=== PATIENT | female | born 1980 | race Caucasian/White ===

== ENCOUNTER 2017-05-11 17:32 | Inpatient (IN) | payer MEDICAID ==
--- NOTE | 2017-05-11 18:49 | C.PDOC ---
History Of Present Illness 36 y/o female, with history of HTN, Type 2 Diabetes, alcoholism, and seizures presents to the ER for detox from ETOH. Patient reports that she uses methadone but she has not been able to receive it at a methadone clinic. Therefore, she is getting methadone in the streets. Patient initial stated she is 6 months with no pre-edu care, now also states that she had a miscarriage about 3 months ago. Patient denies having any headache, fever, chills, nausea, vomiting, and diarrhea. Time Seen by Provider: 05/11/17 17:48 Chief Complaint (Nursing): Substance Abuse History Per: Patient History/Exam Limitations: no limitations Onset/Duration Of Symptoms: Hrs Current Symptoms Are (Timing): Still Present Past Medical History Reviewed: Historical Data, Nursing Documentation, Vital Signs Vital Signs: Last Vital Signs Temp 98.8 F 05/11/17 17:50 Pulse 90 05/11/17 17:50 Resp 16 05/11/17 17:50 BP 128/82 05/11/17 17:50 Pulse Ox 95 05/11/17 18:57 - Medical History PMH: Asthma, HTN, Seizures (EPILEPSY) Surgical History: Appendectomy, Cholecystectomy Family History: States: No Known Family Hx - Social History Hx Alcohol Use: Yes Hx Substance Use: No - Immunization History Hx Tetanus Toxoid Vaccination: No Hx Influenza Vaccination: No Hx Pneumococcal Vaccination: No Review Of Systems Except As Marked, All Systems Reviewed And Found Negative. Constitutional: Negative for: Fever, Chills Gastrointestinal: Negative for: Nausea, Vomiting, Diarrhea Neurological: Negative for: Headache Physical Exam - Physical Exam Appears: No Acute Distress, Other (very thin) Skin: Normal Color, Warm Head: Atraumatic, Normacephalic Eye(s): bilateral: Normal Inspection, PERRL Nose: Normal Oral Mucosa: Moist Neck: Supple Chest: Symmetrical Gastrointestinal/Abdominal: Normal Exam, Soft, Distention, Hernia (right inguinal hernia) Extremity: Normal ROM Neurological/Psych: Oriented x3, Normal Speech, Normal Cognition, Normal Motor, Normal Sensation ED Course And Treatment O2 Sat by Pulse Oximetry: 95 (RA) Pulse Ox Interpretation: Normal Medical Decision Making Medical Decision Making: Impression: Detox from ETOH Abuse Plan: --Labs --Urinalysis -- ABD & Pelv. CT W/PO Contrast Disposition Counseled Patient/Family Regarding: Studies Performed, Diagnosis - Disposition Disposition: HOSPITALIZED Disposition Time: 19:01 Condition: STABLE Forms: [facility] (Slovenian) - Clinical Impression Clinical Impression: Alcohol abuse - Scribe Statement The provider has reviewed the documentation as recorded by the Loveibe Mlies Ward Provider Attestation: All medical record entries made by the Loveibe were at my direction and personally dictated by me. I have reviewed the chart and agree that the record accurately reflects my personal performance of the history, physical exam, medical decision making, and the department course for this patient. I have also personally directed, reviewed, and agree with the discharge instructions and disposition. Physician Patient Turnover Patient Signed Over To: Ronan Schaeffer Handoff Comments: patient pending med clearance for detox and abdominal CT for distention/hernia. Decision To Admit - . Patient Diagnosis: Alcohol abuse
[2017-05-11 19:12] LABS: HCG,QUALITATIVE URINE NEGATIVE (NEGATIVE)
[2017-05-11 19:25] LABS: BENZODIAZEPINES, UR NEGATIVE (NEGATIVE); OPIATES, UR NEGATIVE (NEGATIVE); PHENCYCLIDINE, UR NEGATIVE (NEGATIVE)
[2017-05-11 19:29] LABS: EOS # 0.2 K/uL (0.0-0.7); LYMPH # 1.2 K/uL (1.0-4.3); MONO # 0.4 K/uL (0.0-0.8); WHITE BLOOD COUNT 5.9 K/uL (4.8-10.8)
[2017-05-11 19:30] LABS: SQUAMOUS EPITHIAL 5 /hpf (0-5); URINE BACTERIA RARE (<OCC); URINE BILIRUBIN NEGATIVE (NEGATIVE); URINE BLOOD NEGATIVE (NEGATIVE); URINE CLARITY Clear (Clear); URINE COLOR Straw (YELLOW); URINE GLUCOSE (UA) NORMAL (Normal); URINE LEUKOCYTE ESTERASE 2+ Leu/uL (Negative); URINE NITRATE NEGATIVE (NEGATIVE); URINE PROTEIN NEGATIVE (NEGATIVE); URINE UROBILINOGEN NORMAL mg/dL (0.2-1.0)
[2017-05-11 19:36] LABS: BASO % 0.7 % (0.0-2.0); EOS % 2.7 % (0.0-4.0); LYMPH % 20.7 % (20.0-40.0); MEAN CORPUSCULAR HGB CONC 34.3 g/dL (33.0-37.0); MEAN PLATELET VOLUME 8.7 fL (7.2-11.7); MONO % 7.6 % (0.0-10.0); NEUT % 68.3 % (50.0-75.0); RBC 3.82 Mil/uL (3.80-5.20); RED CELL DISTRIBUTION WIDTH 14.1 % (11.5-14.5)
[2017-05-11 19:41] LABS: ALBUMIN 2.9 g/dL (3.5-5.0); ALT/SGPT 41 U/L (9-52); AST/SGOT 123 U/L (14-36); BLOOD UREA NITROGEN 3 mg/dL (7-17); CALCIUM 7.2 mg/dl (8.6-10.4); GFR AFRICAN-AMERICAN > 60; GFR NON-AFRICAN AMERICAN > 60
[2017-05-11 19:43] LABS: ALB/GLOB RATIO 0.7 (1.0-2.1)
[2017-05-11 19:43] LABS: BARBITURATES, UR NEGATIVE (NEGATIVE)
[2017-05-11] MEDS ORDERED: Iohexol 240 (50 ml) ONE (20:05)
--- NOTE | 2017-05-11 20:38 | US ---
EXAM: US Pelvis Complete, Transabdominal US Pelvis, Transvaginal CLINICAL HISTORY: 36 years old, female; Condition or disease; Other: 6 months no care , for detox; Additional info: 6 months , no care, for detox TECHNIQUE: Real-time transabdominal and transvaginal pelvic ultrasound (complete) with image documentation. Transvaginal imaging was used for better evaluation of the endometrium and adnexa. COMPARISON: No relevant prior studies available. FINDINGS: Uterus/cervix: Transabdominally the uterus measures 8.5 x 3.9 x 4.5 cm. The endometrial stripe measures 5 mm. Ovaries: The ovaries are not seen as separate structures. Free fluid: Small to moderate amount of pelvic ascites is noted. Bladder: Unremarkable as visualized. Wall is normal thickness for degree of distention. IMPRESSION: 1. There is no intrauterine . In the clinical setting of a positive beta hCG and an empty uterus, the differential diagnostic considerations include, ectopic , recent or normal early intrauterine . Serial beta hCG is recommended. 2. The ovaries are not seen as separate structures.. EXAM: US Pelvis Complete, Transabdominal US Pelvis, Transvaginal EXAM DATE/TIME: Exam ordered 05/11/2017 6:13 PM CLINICAL HISTORY: 36 years old, female; Condition or disease; Other: 6 months no care , for detox; Additional info: 6 months , no care, for detox TECHNIQUE: Real-time transabdominal and transvaginal pelvic ultrasound (complete) with image documentation. Transvaginal imaging was used for better evaluation of the endometrium and adnexa. COMPARISON: No relevant prior studies available. FINDINGS: Uterus/cervix: Nabothian cysts are seen in the cervix. The uterus measures 8.2 x 4.5 x 5.7 cm. . The endometrium measures 8 mm. Right ovary: The right ovary measures 2.2 x 2.3 x 2.7 cm.. There are several follicles. The largest measures 1 cm in greatest diameter. Blood flow is present on color Doppler examination. Left ovary: The left ovary measures 3.5 x 1.9 x 3.3 cm. With several follicles. The largest follicle measures and 1.3 cm in greatest diameter. Blood flow is present on color Doppler examination. Free fluid: There is a moderate amount of free fluid in the posterior cul-de-sac. Moderate amount of free fluid is noted in the posterior cul-de-sac. Bladder: Unremarkable as visualized. Wall is normal thickness for degree of distention. IMPRESSION: 1.There is no intrauterine . In the clinical setting of a positive beta hCG and an empty uterus, the differential diagnostic considerations include, ectopic , recent or normal early intrauterine . Serial beta hCG is recommended. 2. Moderate amount of pelvic ascites. The amount seen is greater than that typically seen in a menstruating female. This finding elevates the level of concern for ectopic . Correlation with beta-hCGs is recommended
--- NOTE | 2017-05-11 22:20 | CT ---
EXAM: CT Abdomen and Pelvis With Intravenous Contrast EXAM DATE/TIME: Exam ordered 05/11/2017 6:36 PM CLINICAL HISTORY: 36 years old, female; Pain; Abdominal pain; Localized; Lower; Additional info: Distended abdomen, right inguinal hernia TECHNIQUE: Axial computed tomography images of the abdomen and pelvis with intravenous contrast. All CT scans at this facility use one or more dose reduction techniques, viz.: automated exposure control; ma/kV adjustment per patient size (including targeted exams where dose is matched to indication; i.e. head); or iterative reconstruction technique. Coronal and sagittal reformatted images were created and reviewed. CONTRAST: 50 mL of OMNIPAQUE 240 administered intravenously. COMPARISON: PELVIS/TRANSVAG US 2017-05-11 19:22 FINDINGS: Lower thorax: There is mild cardiomegaly. ABDOMEN: Liver: The liver is nodular in appearance. The liver is heterogeneous in density and measures 18 cm in craniocaudal span.. Gallbladder and bile ducts: Unremarkable. No calcified stones. No ductal dilation. Pancreas: Unremarkable. No mass. No ductal dilation. Spleen: The spleen measures 15 cm in craniocaudal span.. Adrenals: Unremarkable. No mass. Kidneys and ureters: Unremarkable. No solid mass. No hydronephrosis. Stomach and bowel: Wall thickening is noted at the level of the gastric antrum/first portion the duodenum. There is mild diffuse bowel wall thickening. No obstruction. Appendix: No findings to suggest acute appendicitis. PELVIS: Bladder: Unremarkable. No mass. Reproductive: Unremarkable as visualized. ABDOMEN and PELVIS: Intraperitoneal space: There is perihepatic and perisplenic ascites. Pelvic ascites is present. Free air is present in the mer hepatis. Bones/joints: No acute fracture. No dislocation. Soft tissues: There is stranding of the mesenteric fat. Fluid is noted within the right inguinal canal, Canal of [place] . There is anasarca. Vasculature: Unremarkable. No abdominal aortic aneurysm. Lymph nodes: Unremarkable. No enlarged lymph nodes. IMPRESSION: 1. Free air noted within the mer hepatis. There is adjacent thickening noted of the gastric antrum and first portion the duodenum. The free air could be related to a perforated ulcer. 2. Enlarged liver with abnormal density. The finding is suspicious for metastatic disease. 3. Splenomegaly with ascites reflective of portal hypertension. 4. Anasarca.
--- NOTE | 2017-05-12 07:10 | CP.PCM.PN ---
Subjective - Date & Time of Evaluation Date of Evaluation: 05/12/17 Time of Evaluation: 10:00 - Subjective Subjective: Dr. Yossi Carrion note: Patient is a 36 year old female with a history of DM, asthma, and tobacco use disorder because she has been abusing alcohol for the past 5 years and is asking for detox. She says the last time she drank etoh was yesterday morning. She normal drinks about 6-7 ounces of Vodka. She says she has been getting very shaky in the morning and is that way till she has a drink of alcohol. She denies other drug use. She is on methadone for opoid use disorder. PMH: see above Objective - Vital Signs/Intake and Output Vital Signs (last 24 hours): Temp Pulse Resp BP Pulse Ox 98.1 F 92 H 16 102/62 97 05/12/17 01:32 05/12/17 01:32 05/12/17 01:32 05/12/17 01:32 05/12/17 01:32 - Medications Medications: Current Medications Enoxaparin Sodium (Lovenox) 40 mg SC DAILY [facility] Furosemide (Lasix) 40 mg PO DAILY [facility] Hydromorphone HCl (Dilaudid) 1 mg IVP Q8H PRN PRN Reason: Pain, severe (8-10) Last Admin: 05/12/17 02:20 Dose: 1 mg Insulin Aspart (Novolog) 0 unit SC ACHS [facility] PRN Reason: Protocol Insulin Detemir (Levemir) 70 unit SC Q12 [facility] Methadone HCl (Methadone) 40 mg PO DAILY [facility] Ondansetron HCl (Zofran Inj) 4 mg IVP Q6H PRN PRN Reason: Nausea/Vomiting Pantoprazole Sodium (Protonix Susp) 40 mg PO DAILY [facility] Pneumococcal Polyvalent Vaccine (Pneumovax 23 Vaccine) 0.5 ml IM .ONCE ONE Stop: 05/13/17 10:01 - Labs Labs: 05/11/17 19:27 05/11/17 19:27 - Constitutional Appears: Non-toxic, No Acute Distress - Eye Exam Eye Exam: Normal appearance, PERRL. absent: Scleral icterus - Respiratory Exam Respiratory Exam: Clear to Ausculation Bilateral. absent: Rales, Rhonchi, Wheezes - Cardiovascular Exam Cardiovascular Exam: REGULAR RHYTHM, RRR, +S1, +S2. absent: Gallop, Rubs - GI/Abdominal Exam GI & Abdominal Exam: Soft, Normal Bowel Sounds. absent: Tenderness - Extremities Exam Extremities Exam: Normal Inspection. absent: Pedal Edema - Neurological Exam Neurological Exam: Alert, Oriented x3 Additional comments: mildly tremulous - Psychiatric Exam Psychiatric exam: Normal Affect, Normal Mood - Skin Skin Exam: Normal Color, Warm Assessment and Plan (1) Alcohol abuse Assessment & Plan: Patient admitted yesterday, have put patient on CIWA protocol, Librium and Ativan prn ordered. thiamine, folic acid, and multivitamin given. Status: Acute (2) Hepatosplenomegaly Assessment & Plan: not enough asicities for a pericentesis. GI is consulted, his hep panel is negative, will follow up the rest of the studies and also follow up with GI was well. CT scan of the abdomen and pelvis preformed, please see emr for full read. Status: Acute (3) Thrombocytopenia Assessment & Plan: most likely secondary to etoh abuse. Status: Acute (4) Diabetes mellitus Assessment & Plan: continue home insulin, sliding scale, accu check, hypolycemia protocol. Status: Chronic (5) Asthma Assessment & Plan: Duoneb q6h prn for wheezing. Status: Chronic (6) Tobacco use disorder Assessment & Plan: Patch ordered for while patient is in hospital. Status: Chronic (7) Methadone use Assessment & Plan: continue home methadone Status: Chronic (8) Prophylactic measure Assessment & Plan: Lovenox on hold due to low Platlet count and protonix SCDs Status: Acute
[2017-05-12] MEDS: (Novolog) Insulin Aspart, Recombinant 100 u/ml 10 ml vial SC SCH ×4 (07:47→21:18)
[2017-05-12 08:36] LABS: BASO % 0.9 % (0.0-2.0); EOS # 0.1 K/uL (0.0-0.7); EOS % 2.8 % (0.0-4.0); HEMOGLOBIN 11.8 g/dL (11.0-16.0); LYMPH # 1.3 K/uL (1.0-4.3); LYMPH % 24.6 % (20.0-40.0); MEAN CELL VOLUME 98.6 fL (81.0-99.0); MEAN CORPUSCULAR HEMOGLOBIN 34.1 pg (27.0-31.0); MEAN CORPUSCULAR HGB CONC 34.6 g/dL (33.0-37.0); MEAN PLATELET VOLUME 8.7 fL (7.2-11.7); MONO # 0.5 K/uL (0.0-0.8); MONO % 8.7 % (0.0-10.0); NEUT # 3.4 K/uL (1.8-7.0); RBC 3.46 Mil/uL (3.80-5.20); WHITE BLOOD COUNT 5.3 K/uL (4.8-10.8)
[2017-05-12 08:41] LABS: INR 1.2; PROTHROMBIN TIME 13.9 SECONDS (9.7-12.2)
[2017-05-12 08:57] VITALS: RESP 20
[2017-05-12 09:14] LABS: ALB/GLOB RATIO 0.7 (1.0-2.1); ALBUMIN 2.6 g/dL (3.5-5.0); ALT/SGPT 44 U/L (9-52); AST/SGOT 106 U/L (14-36); BILIRUBIN,DIRECT 0.3 mg/dL (0.0-0.4); BLOOD UREA NITROGEN 5 mg/dL (7-17); CALCIUM 7.3 mg/dl (8.6-10.4); GAMMA GLUTAMYL TRANSPEPTIDASE 334 U/L (8-78); GFR AFRICAN-AMERICAN > 60; GFR NON-AFRICAN AMERICAN > 60
[2017-05-12] MEDS ORDERED: Dextrose 50% SYRINGE Inj (50 ml) IV PRN (09:20)
[2017-05-12] MEDS ORDERED: Glucagon Recombinant 1 mg Inj IM PRN (09:20)
[2017-05-12 09:36] LABS: HEPATITIS B SURFACE AG NEGATIVE (NEGATIVE)
[2017-05-12 09:42] LABS: HEPATITIS A IGM NEGATIVE (NEGATIVE); HEPATITIS B CORE AB Negative (NEGATIVE)
--- NOTE | 2017-05-12 09:52 | PCM.IRP ---
Chief Complaint: Pt came to IR for ultrasound guided paracentesis. 4 quadrant sonographic evaluation revealed trace ascites, not enough to safely aspirate for diagnostic paracentesis. Parecentesis not performed. Patient sent back to floor. Objective - Vital Signs/Intake and Output Vital Signs (last 24 hours): Vital Signs - 24 hr 05/11/17 05/11/17 05/11/17 17:50 21:59 23:49 Temperature 98.8 F 97.8 F Pulse Rate 90 88 Pulse Rate [ Bilateral Radial] Respiratory 16 18 Rate Blood Pressure 128/82 107/66 O2 Sat by Pulse 95 97 97 Oximetry 05/12/17 05/12/17 05/12/17 01:25 01:32 01:40 Temperature 98.7 F 98.1 F Pulse Rate 94 H 92 H Pulse Rate [ 92 H Bilateral Radial] Respiratory 20 16 Rate Blood Pressure 120/79 102/62 O2 Sat by Pulse 100 97 Oximetry 05/12/17 08:00 Temperature 98.6 F Pulse Rate 84 Pulse Rate [ Bilateral Radial] Respiratory 20 Rate Blood Pressure 117/74 O2 Sat by Pulse 95 Oximetry Intake and Output (last 12 hours): Intake & Output 05/11/17 05/12/17 05/12/17 18:59 06:59 18:59 Intake Total 300 Balance 300 Weight 154 lb Intake: Oral 300 Other: # Voids Urine, Voided 3 # Bowel Movements 0 - Medications Medications: Current Medications Dextrose (Dextrose 50% Inj) 0 ml IV STAT PRN; Protocol PRN Reason: Hypoglycemia Protocol Dextrose (Glutose 15) 0 gm PO ONCE PRN; Protocol PRN Reason: Hypoglycemia Protocol Enoxaparin Sodium (Lovenox) 40 mg SC DAILY [facility] Furosemide (Lasix) 40 mg PO DAILY [facility] Glucagon (Glucagen Diagnostic Kit) 0 mg IM STAT PRN; Protocol PRN Reason: Hypoglycemia Protocol Hydromorphone HCl (Dilaudid) 1 mg IVP Q8H PRN PRN Reason: Pain, severe (8-10) Last Admin: 05/12/17 02:20 Dose: 1 mg Dextrose (Dextrose 5% In Water 1000 Ml) 1,000 mls @ 0 mls/hr IV .Q0M PRN; Protocol; Per Protocol PRN Reason: Hypoglycemia Protocol Insulin Aspart (Novolog) 0 unit SC ACHS [facility] PRN Reason: Protocol Last Admin: 05/12/17 07:47 Dose: Not Given Insulin Detemir (Levemir) 70 unit SC Q12 [facility] Insulin Human Regular (Novolin R) 0 unit SC ACHS [facility] PRN Reason: Protocol Methadone HCl (Methadone) 40 mg PO DAILY [facility] Ondansetron HCl (Zofran Inj) 4 mg IVP Q6H PRN PRN Reason: Nausea/Vomiting Pantoprazole Sodium (Protonix Susp) 40 mg PO DAILY [facility] Pneumococcal Polyvalent Vaccine (Pneumovax 23 Vaccine) 0.5 ml IM .ONCE ONE Stop: 05/13/17 10:01 - Labs Labs (last 24 hours): Laboratory Results - last 24 hr 05/11/17 05/11/17 05/11/17 18:58 18:58 19:27 WBC 5.9 RBC 3.82 Hgb 13.0 Hct 37.8 MCV 99.0 MCH 34.0 H MCHC 34.3 RDW 14.1 Plt Count 112 L MPV 8.7 Neut % (Auto) 68.3 Lymph % (Auto) 20.7 [place] % (Auto) 7.6 Eos % (Auto) 2.7 Baso % (Auto) 0.7 Neut # 4.0 Lymph # 1.2 [place] # 0.4 Eos # 0.2 Baso # 0.0 Differential Comment PT INR Sodium Potassium Chloride Carbon Dioxide Anion Gap BUN Creatinine Est GFR ( Amer) Est GFR (Non-Af Amer) Random Glucose Calcium Total Bilirubin Direct Bilirubin GGT AST ALT Alkaline Phosphatase Total Protein Albumin Globulin Albumin/Globulin Ratio Beta HCG, Quant Urine Color Straw Urine Clarity Clear Urine pH 7.0 Ur Specific [place] 1.003 Urine Protein Negative Urine Glucose (UA) Normal Urine Ketones Negative Urine Blood Negative Urine Nitrate Negative Urine Bilirubin Negative Urine Urobilinogen Normal Ur Leukocyte Esterase 2+ H Urine WBC (Auto) 7 H Urine RBC (Auto) < 1 Ur Squamous Epith Cells 5 Urine Bacteria Rare Urine HCG, Qual Negative Urine Opiates Screen Negative Urine Methadone Screen Positive H Ur Barbiturates Screen Negative Ur Phencyclidine Scrn Negative Ur Amphetamines Screen Negative U Benzodiazepines Scrn Negative U Oth Cocaine Metabols Negative U Cannabinoids Screen Negative Alcohol, Quantitative Hepatitis A IgM Ab Hep Bs Antigen Hep B Core IgM Ab 05/11/17 05/11/17 05/12/17 19:27 19:27 08:31 WBC 5.3 RBC 3.46 L Hgb 11.8 Hct 34.1 MCV 98.6 MCH 34.1 H MCHC 34.6 RDW 14.0 Plt Count 101 L MPV 8.7 Neut % (Auto) 63.0 Lymph % (Auto) 24.6 [place] % (Auto) 8.7 Eos % (Auto) 2.8 Baso % (Auto) 0.9 Neut # 3.4 Lymph # 1.3 [place] # 0.5 Eos # 0.1 Baso # 0.0 Differential Comment PT INR Sodium 136 Potassium 3.6 Chloride 106 Carbon Dioxide 23 Anion Gap 10 BUN 3 L Creatinine 0.4 L Est GFR ( Amer) > 60 Est GFR (Non-Af Amer) > 60 Random Glucose 103 Calcium 7.2 L Total Bilirubin 1.7 H Direct Bilirubin GGT AST 123 H ALT 41 Alkaline Phosphatase 172 H Total Protein 7.1 Albumin 2.9 L Globulin 4.2 H Albumin/Globulin Ratio 0.7 L Beta HCG, Quant < 2.39 Urine Color Urine Clarity Urine pH Ur Specific [place] Urine Protein Urine Glucose (UA) Urine Ketones Urine Blood Urine Nitrate Urine Bilirubin Urine Urobilinogen Ur Leukocyte Esterase Urine WBC (Auto) Urine RBC (Auto) Ur Squamous Epith Cells Urine Bacteria Urine HCG, Qual Urine Opiates Screen Urine Methadone Screen Ur Barbiturates Screen Ur Phencyclidine Scrn Ur Amphetamines Screen U Benzodiazepines Scrn U Oth Cocaine Metabols U Cannabinoids Screen Alcohol, Quantitative 176 H Hepatitis A IgM Ab Hep Bs Antigen Hep B Core IgM Ab 05/12/17 05/12/17 05/12/17 08:31 08:31 08:31 WBC RBC Hgb Hct MCV MCH MCHC RDW Plt Count MPV Neut % (Auto) Lymph % (Auto) [place] % (Auto) Eos % (Auto) Baso % (Auto) Neut # Lymph # [place] # Eos # Baso # Differential Comment PT 13.9 H INR 1.2 Sodium 131 L Potassium 3.9 Chloride 103 Carbon Dioxide 26 Anion Gap 6 L BUN 5 L Creatinine 0.4 L Est GFR ( Amer) > 60 Est GFR (Non-Af Amer) > 60 Random Glucose 90 Calcium 7.3 L Total Bilirubin 1.9 H Direct Bilirubin 0.3 GGT 334 H AST 106 H ALT 44 Alkaline Phosphatase 149 H Total Protein 6.3 Albumin 2.6 L Globulin 3.8 Albumin/Globulin Ratio 0.7 L Beta HCG, Quant Urine Color Urine Clarity Urine pH Ur Specific [place] Urine Protein Urine Glucose (UA) Urine Ketones Urine Blood Urine Nitrate Urine Bilirubin Urine Urobilinogen Ur Leukocyte Esterase Urine WBC (Auto) Urine RBC (Auto) Ur Squamous Epith Cells Urine Bacteria Urine HCG, Qual Urine Opiates Screen Urine Methadone Screen Ur Barbiturates Screen Ur Phencyclidine Scrn Ur Amphetamines Screen U Benzodiazepines Scrn U Oth Cocaine Metabols U Cannabinoids Screen Alcohol, Quantitative Hepatitis A IgM Ab Negative Hep Bs Antigen Negative Hep B Core IgM Ab Negative
[2017-05-12 09:54] LABS: HEPATITIS C ANTIBODY Negative (NEGATIVE)
[2017-05-12] MEDS ORDERED: Enoxaparin 40 mg Syringe SC SCH ×2 (10:00)
--- NOTE | 2017-05-12 10:13 | CP.PCM.CON ---
<Martina Avilez - Last Filed: 05/12/17 12:35> History of Present Illness - History of Present Illness History of Present Illness: GI Fellow PGY 4 Consult Note This is a 36yF with pmhx if HTN, DM2, Seizure disorder on Keppra, Opioid addiction on methadone, alcohol abuse presenting with complaints of abdominal pain and increasing abdominal girth. Pt also came to ER for detox but was not medically cleared. Pt reports that she started drinking alcohol at age 31 and drank socially except over the past month has been drinking 5oz of Vodka daily. Last drink was prior to ER visit. She noticed fluid building in her abdomen over the past week and now is experiencing some tenderness. Pt denies any prior episodes and no prior hx of paracentesis. Pt denies hx of hepatitis or liver disease, no hx of IVDA. Pt says she became addicted to opioids so has been on methadone for 3 years. Pt denies any melena, hematochezia, hematemesis. Pt reports hx of EGD/Colonoscopy at age 17 done by her surgeon when she had a SBO and needed resection. Pt has her fiance at bedside but requests no discussion of medical care in front of him. ROS: A 12pt ROS was negative except as above. PmHx: As stated in HPI PsHx: appendectomy, small bowel resection at age 17 s/p SBO, FHx: DM, liver disease, denies colon, pancreatic, hepatic cancer, denies of alcoholism SHx: 1pack/wk tobacco, etoh 5oz vodka daily for one month, started etoh since age 31, hx of opioid addiction on methadone for 3 yrs, denies IVDA Past Patient History - Infectious Disease Hx of Infectious Diseases: None - Past Social History Smoking Status: Heavy Smoker > 10 Cigarettes Daily - CARDIAC Hx Cardiac Disorders: Yes Hx Hypertension: Yes - PULMONARY Hx Respiratory Disorders: Yes Hx Asthma: Yes - NEUROLOGICAL Hx Neurological Disorder: Yes Hx Seizures: Yes (EPILEPSY) - HEENT Hx HEENT Problems: No - RENAL Hx Chronic Kidney Disease: No - ENDOCRINE/METABOLIC Hx Endocrine Disorders: Yes Hx Diabetes Mellitus Type 2: Yes (INSULIN DEPENDENT) - HEMATOLOGICAL/ONCOLOGICAL Hx Blood Disorders: No Hx Cancer: No Hx Human Immunodeficiency Virus (HIV): No - INTEGUMENTARY Hx Dermatological Problems: No - MUSCULOSKELETAL/RHEUMATOLOGICAL Hx Musculoskeletal Disorders: No Hx Falls: No - GASTROINTESTINAL Hx Gastrointestinal Disorders: No - GENITOURINARY/GYNECOLOGICAL Hx Genitourinary Disorders: No Hx Sexually Transmitted Disorders: No - PSYCHIATRIC Hx Psychophysiologic Disorder: No Hx Substance Use: No - SURGICAL HISTORY Hx Surgeries: Yes Hx Appendectomy: Yes Hx Cholecystectomy: Yes - ANESTHESIA Hx Anesthesia: Yes Hx Anesthesia Reactions: No Meds Allergies/Adverse Reactions: Allergies Allergy/AdvReac Type Severity Reaction Status Date / Time FISH Allergy Verified 05/11/17 17:49 paroxetine [From Paxil] Allergy Verified 05/11/17 17:49 shellfish derived Allergy Verified 05/11/17 17:49 - Medications Medications: Current Medications Chlordiazepoxide (Librium) 25 mg PO Q8 PRN PRN Reason: Anxiety Dextrose (Dextrose 50% Inj) 0 ml IV STAT PRN; Protocol PRN Reason: Hypoglycemia Protocol Dextrose (Glutose 15) 0 gm PO ONCE PRN; Protocol PRN Reason: Hypoglycemia Protocol Enoxaparin Sodium (Lovenox) 40 mg SC DAILY [facility] Furosemide (Lasix) 40 mg PO DAILY [facility] Glucagon (Glucagen Diagnostic Kit) 0 mg IM STAT PRN; Protocol PRN Reason: Hypoglycemia Protocol Hydromorphone HCl (Dilaudid) 1 mg IVP Q8H PRN PRN Reason: Pain, severe (8-10) Last Admin: 05/12/17 02:20 Dose: 1 mg Dextrose (Dextrose 5% In Water 1000 Ml) 1,000 mls @ 0 mls/hr IV .Q0M PRN; Protocol; Per Protocol PRN Reason: Hypoglycemia Protocol Insulin Aspart (Novolog) 0 unit SC ACHS [facility] PRN Reason: Protocol Last Admin: 05/12/17 07:47 Dose: Not Given Insulin Detemir (Levemir) 70 unit SC Q12 [facility] Insulin Human Regular (Novolin R) 0 unit SC ACHS [facility] PRN Reason: Protocol Lorazepam (Ativan) 2 mg IVP Q6H PRN PRN Reason: Seizure activity Methadone HCl (Methadone) 40 mg PO DAILY [facility] Ondansetron HCl (Zofran Inj) 4 mg IVP Q6H PRN PRN Reason: Nausea/Vomiting Pantoprazole Sodium (Protonix Susp) 40 mg PO DAILY [facility] Pneumococcal Polyvalent Vaccine (Pneumovax 23 Vaccine) 0.5 ml IM .ONCE ONE Stop: 05/13/17 10:01 Physical Exam - Constitutional Appears: Non-toxic, No Acute Distress - Head Exam Head Exam: ATRAUMATIC, NORMAL INSPECTION, NORMOCEPHALIC - Eye Exam Eye Exam: EOMI, Normal appearance, PERRL. absent: Scleral icterus Pupil Exam: PERRL - ENT Exam ENT Exam: Mucous Membranes Moist, Normal Exam - Neck Exam Neck exam: Positive for: Full Rom - Respiratory Exam Respiratory Exam: Decreased Breath Sounds, NORMAL BREATHING PATTERN - Cardiovascular Exam Cardiovascular Exam: REGULAR RHYTHM - GI/Abdominal Exam GI & Abdominal Exam: Distended, Normal Bowel Sounds, Organomegaly, Soft, Tenderness - Rectal Exam Rectal Exam: Deferred - Extremities Exam Extremities exam: Positive for: normal inspection - Back Exam Back exam: NORMAL INSPECTION - Neurological Exam Neurological exam: Alert, Oriented x3 - Psychiatric Exam Psychiatric exam: Normal Affect, Normal Mood - Skin Skin Exam: Dry, Intact, Normal Color, Warm Results - Vital Signs Recent Vital Signs: Last Vital Signs Temp 98.6 F 05/12/17 08:00 Pulse 84 05/12/17 08:00 Resp 20 05/12/17 08:00 BP 117/74 05/12/17 08:00 Pulse Ox 95 05/12/17 08:00 - Labs Result Diagrams: 05/12/17 08:31 05/12/17 08:31 Labs: Laboratory Results - last 24 hr 05/11/17 05/11/17 05/11/17 18:58 18:58 19:27 WBC 5.9 RBC 3.82 Hgb 13.0 Hct 37.8 MCV 99.0 MCH 34.0 H MCHC 34.3 RDW 14.1 Plt Count 112 L MPV 8.7 Neut % (Auto) 68.3 Lymph % (Auto) 20.7 [place] % (Auto) 7.6 Eos % (Auto) 2.7 Baso % (Auto) 0.7 Neut # 4.0 Lymph # 1.2 [place] # 0.4 Eos # 0.2 Baso # 0.0 Differential Comment PT INR Sodium Potassium Chloride Carbon Dioxide Anion Gap BUN Creatinine Est GFR ( Amer) Est GFR (Non-Af Amer) Random Glucose Calcium Total Bilirubin Direct Bilirubin GGT AST ALT Alkaline Phosphatase Total Protein Albumin Globulin Albumin/Globulin Ratio Beta HCG, Quant Urine Color Straw Urine Clarity Clear Urine pH 7.0 Ur Specific [place] 1.003 Urine Protein Negative Urine Glucose (UA) Normal Urine Ketones Negative Urine Blood Negative Urine Nitrate Negative Urine Bilirubin Negative Urine Urobilinogen Normal Ur Leukocyte Esterase 2+ H Urine WBC (Auto) 7 H Urine RBC (Auto) < 1 Ur Squamous Epith Cells 5 Urine Bacteria Rare Urine HCG, Qual Negative Urine Opiates Screen Negative Urine Methadone Screen Positive H Ur Barbiturates Screen Negative Ur Phencyclidine Scrn Negative Ur Amphetamines Screen Negative U Benzodiazepines Scrn Negative U Oth Cocaine Metabols Negative U Cannabinoids Screen Negative Alcohol, Quantitative Hepatitis A IgM Ab Hep Bs Antigen Hep B Core IgM Ab Hepatitis C Antibody 05/11/17 05/11/17 05/12/17 19:27 19:27 08:31 WBC 5.3 RBC 3.46 L Hgb 11.8 Hct 34.1 MCV 98.6 MCH 34.1 H MCHC 34.6 RDW 14.0 Plt Count 101 L MPV 8.7 Neut % (Auto) 63.0 Lymph % (Auto) 24.6 [place] % (Auto) 8.7 Eos % (Auto) 2.8 Baso % (Auto) 0.9 Neut # 3.4 Lymph # 1.3 [place] # 0.5 Eos # 0.1 Baso # 0.0 Differential Comment PT INR Sodium 136 Potassium 3.6 Chloride 106 Carbon Dioxide 23 Anion Gap 10 BUN 3 L Creatinine 0.4 L Est GFR ( Amer) > 60 Est GFR (Non-Af Amer) > 60 Random Glucose 103 Calcium 7.2 L Total Bilirubin 1.7 H Direct Bilirubin GGT AST 123 H ALT 41 Alkaline Phosphatase 172 H Total Protein 7.1 Albumin 2.9 L Globulin 4.2 H Albumin/Globulin Ratio 0.7 L Beta HCG, Quant < 2.39 Urine Color Urine Clarity Urine pH Ur Specific [place] Urine Protein Urine Glucose (UA) Urine Ketones Urine Blood Urine Nitrate Urine Bilirubin Urine Urobilinogen Ur Leukocyte Esterase Urine WBC (Auto) Urine RBC (Auto) Ur Squamous Epith Cells Urine Bacteria Urine HCG, Qual Urine Opiates Screen Urine Methadone Screen Ur Barbiturates Screen Ur Phencyclidine Scrn Ur Amphetamines Screen U Benzodiazepines Scrn U Oth Cocaine Metabols U Cannabinoids Screen Alcohol, Quantitative 176 H Hepatitis A IgM Ab Hep Bs Antigen Hep B Core IgM Ab Hepatitis C Antibody 05/12/17 05/12/17 05/12/17 08:31 08:31 08:31 WBC RBC Hgb Hct MCV MCH MCHC RDW Plt Count MPV Neut % (Auto) Lymph % (Auto) [place] % (Auto) Eos % (Auto) Baso % (Auto) Neut # Lymph # [place] # Eos # Baso # Differential Comment PT 13.9 H INR 1.2 Sodium 131 L Potassium 3.9 Chloride 103 Carbon Dioxide 26 Anion Gap 6 L BUN 5 L Creatinine 0.4 L Est GFR ( Amer) > 60 Est GFR (Non-Af Amer) > 60 Random Glucose 90 Calcium 7.3 L Total Bilirubin 1.9 H Direct Bilirubin 0.3 GGT 334 H AST 106 H ALT 44 Alkaline Phosphatase 149 H Total Protein 6.3 Albumin 2.6 L Globulin 3.8 Albumin/Globulin Ratio 0.7 L Beta HCG, Quant Urine Color Urine Clarity Urine pH Ur Specific [place] Urine Protein Urine Glucose (UA) Urine Ketones Urine Blood Urine Nitrate Urine Bilirubin Urine Urobilinogen Ur Leukocyte Esterase Urine WBC (Auto) Urine RBC (Auto) Ur Squamous Epith Cells Urine Bacteria Urine HCG, Qual Urine Opiates Screen Urine Methadone Screen Ur Barbiturates Screen Ur Phencyclidine Scrn Ur Amphetamines Screen U Benzodiazepines Scrn U Oth Cocaine Metabols U Cannabinoids Screen Alcohol, Quantitative Hepatitis A IgM Ab Negative Hep Bs Antigen Negative Hep B Core IgM Ab Negative Hepatitis C Antibody Negative Assessment & Plan - Assessment and Plan (Free Text) Assessment: This is a 36yF presenting for alcohol and drug detox and increasing fluid in her abdomen. 1. 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 Alcohol Abuse 4. Elevated LFTs 5. Hx of opioid addiction on methadone 6. Hx DM, Hx Seizures, Hx HTN Plan: -Continue supportive acre with pain control and anti-emetics -Pt with ascites on exam and on CT imaging, consult IR for paracentesis and peritoneal fluid studies to r/o SBP -CT imaging reviewed with nodular liver, hepatomegally concern for cirrhosis will order CT Liver Triple phase to r/o HCC and AFP -Elevated LFTs likely from alcohol abuse but will order hepatitis and autoimmune workup for completion -Discussed with pt about alcohol cessation and current diagnosis -Pt will need oupt EGD for variceal screening -Will continue to follow pt closely <Twan Vargas - Last Filed: 05/12/17 16:22> Meds - Medications Medications: Current Medications Chlordiazepoxide (Librium) 25 mg PO Q8 PRN PRN Reason: Anxiety Last Admin: 05/12/17 10:25 Dose: 25 mg Dextrose (Dextrose 50% Inj) 0 ml IV STAT PRN; Protocol PRN Reason: Hypoglycemia Protocol Dextrose (Glutose 15) 0 gm PO ONCE PRN; Protocol PRN Reason: Hypoglycemia Protocol Diphenhydramine HCl (Benadryl) 50 mg PO ONCE ONE Stop: 05/13/17 07:01 Enoxaparin Sodium (Lovenox) 40 mg SC DAILY [facility] Folic Acid (Folic Acid) 1 mg PO DAILY [facility] Glucagon (Glucagen Diagnostic Kit) 0 mg IM STAT PRN; Protocol PRN Reason: Hypoglycemia Protocol Hydromorphone HCl (Dilaudid) 1 mg IVP Q8H PRN PRN Reason: Pain, severe (8-10) Last Admin: 05/12/17 02:20 Dose: 1 mg Dextrose (Dextrose 5% In Water 1000 Ml) 1,000 mls @ 0 mls/hr IV .Q0M PRN; Protocol; Per Protocol PRN Reason: Hypoglycemia Protocol Insulin Aspart (Novolog) 0 unit SC ACHS [facility] PRN Reason: Protocol Last Admin: 05/12/17 12:20 Dose: Not Given Insulin Detemir (Levemir) 70 unit SC Q12 [facility] Last Admin: 05/12/17 10:25 Dose: Not Given Insulin Human Regular (Novolin R) 0 unit SC ACHS [facility] PRN Reason: Protocol Last Admin: 05/12/17 12:19 Dose: Not Given Lorazepam (Ativan) 2 mg IVP Q6H PRN PRN Reason: Seizure activity Methadone HCl (Methadone) 40 mg PO DAILY [facility] Last Admin: 05/12/17 10:24 Dose: 40 mg Multivitamins (Hexavitamin) 1 tab PO DAILY [facility] Nicotine (Nicoderm Cq) 1 patch TD DAILY [facility] Last Admin: 05/12/17 14:45 Dose: 1 patch Ondansetron HCl (Zofran Inj) 4 mg IVP Q6H PRN PRN Reason: Nausea/Vomiting Last Admin: 05/12/17 10:23 Dose: 4 mg Pantoprazole Sodium (Protonix Susp) 40 mg PO DAILY [facility] Last Admin: 05/12/17 10:27 Dose: Not Given Pneumococcal Polyvalent Vaccine (Pneumovax 23 Vaccine) 0.5 ml IM .ONCE ONE Stop: 01/04/18 10:01 Prednisone (Prednisone Tab) 50 mg PO DAILY [facility] Prednisone (Prednisone Tab) 50 mg PO ONCE ONE Stop: 05/13/17 18:01 Thiamine HCl (Vitamin B1 Tab) 100 mg PO DAILY [facility] Results - Vital Signs Recent Vital Signs: Last Vital Signs Temp 98.6 F 05/12/17 08:00 Pulse 84 05/12/17 08:00 Resp 20 05/12/17 08:00 BP 117/74 05/12/17 08:00 Pulse Ox 95 05/12/17 08:00 - Labs Result Diagrams: 05/12/17 08:31 05/12/17 08:31 Labs: Laboratory Results - last 24 hr 05/11/17 05/11/17 05/11/17 18:58 18:58 19:27 WBC 5.9 RBC 3.82 Hgb 13.0 Hct 37.8 MCV 99.0 MCH 34.0 H MCHC 34.3 RDW 14.1 Plt Count 112 L MPV 8.7 Neut % (Auto) 68.3 Lymph % (Auto) 20.7 [place] % (Auto) 7.6 Eos % (Auto) 2.7 Baso % (Auto) 0.7 Neut # 4.0 Lymph # 1.2 [place] # 0.4 Eos # 0.2 Baso # 0.0 Differential Comment PT INR Sodium Potassium Chloride Carbon Dioxide Anion Gap BUN Creatinine Est GFR ( Amer) Est GFR (Non-Af Amer) Random Glucose Calcium Total Bilirubin Direct Bilirubin GGT AST ALT Alkaline Phosphatase Total Protein Albumin Globulin Albumin/Globulin Ratio Alpha Fetoprotein Beta HCG, Quant Urine Color Straw Urine Clarity Clear Urine pH 7.0 Ur Specific [place] 1.003 Urine Protein Negative Urine Glucose (UA) Normal Urine Ketones Negative Urine Blood Negative Urine Nitrate Negative Urine Bilirubin Negative Urine Urobilinogen Normal Ur Leukocyte Esterase 2+ H Urine WBC (Auto) 7 H Urine RBC (Auto) < 1 Ur Squamous Epith Cells 5 Urine Bacteria Rare Urine HCG, Qual Negative Urine Opiates Screen Negative Urine Methadone Screen Positive H Ur Barbiturates Screen Negative Ur Phencyclidine Scrn Negative Ur Amphetamines Screen Negative U Benzodiazepines Scrn Negative U Oth Cocaine Metabols Negative U Cannabinoids Screen Negative Alcohol, Quantitative IgG Hepatitis A IgM Ab Hep Bs Antigen Hep B Core IgM Ab Hepatitis C Antibody 05/11/17 05/11/17 05/12/17 19:27 19:27 08:31 WBC 5.3 RBC 3.46 L Hgb 11.8 Hct 34.1 MCV 98.6 MCH 34.1 H MCHC 34.6 RDW 14.0 Plt Count 101 L MPV 8.7 Neut % (Auto) 63.0 Lymph % (Auto) 24.6 [place] % (Auto) 8.7 Eos % (Auto) 2.8 Baso % (Auto) 0.9 Neut # 3.4 Lymph # 1.3 [place] # 0.5 Eos # 0.1 Baso # 0.0 Differential Comment PT INR Sodium 136 Potassium 3.6 Chloride 106 Carbon Dioxide 23 Anion Gap 10 BUN 3 L Creatinine 0.4 L Est GFR ( Amer) > 60 Est GFR (Non-Af Amer) > 60 Random Glucose 103 Calcium 7.2 L Total Bilirubin 1.7 H Direct Bilirubin GGT AST 123 H ALT 41 Alkaline Phosphatase 172 H Total Protein 7.1 Albumin 2.9 L Globulin 4.2 H Albumin/Globulin Ratio 0.7 L Alpha Fetoprotein Beta HCG, Quant < 2.39 Urine Color Urine Clarity Urine pH Ur Specific [place] Urine Protein Urine Glucose (UA) Urine Ketones Urine Blood Urine Nitrate Urine Bilirubin Urine Urobilinogen Ur Leukocyte Esterase Urine WBC (Auto) Urine RBC (Auto) Ur Squamous Epith Cells Urine Bacteria Urine HCG, Qual Urine Opiates Screen Urine Methadone Screen Ur Barbiturates Screen Ur Phencyclidine Scrn Ur Amphetamines Screen U Benzodiazepines Scrn U Oth Cocaine Metabols U Cannabinoids Screen Alcohol, Quantitative 176 H IgG Hepatitis A IgM Ab Hep Bs Antigen Hep B Core IgM Ab Hepatitis C Antibody 05/12/17 05/12/17 05/12/17 08:31 08:31 08:31 WBC RBC Hgb Hct MCV MCH MCHC RDW Plt Count MPV Neut % (Auto) Lymph % (Auto) [place] % (Auto) Eos % (Auto) Baso % (Auto) Neut # Lymph # [place] # Eos # Baso # Differential Comment PT 13.9 H INR 1.2 Sodium 131 L Potassium 3.9 Chloride 103 Carbon Dioxide 26 Anion Gap 6 L BUN 5 L Creatinine 0.4 L Est GFR ( Amer) > 60 Est GFR (Non-Af Amer) > 60 Random Glucose 90 Calcium 7.3 L Total Bilirubin 1.9 H Direct Bilirubin 0.3 GGT 334 H AST 106 H ALT 44 Alkaline Phosphatase 149 H Total Protein 6.3 Albumin 2.6 L Globulin 3.8 Albumin/Globulin Ratio 0.7 L Alpha Fetoprotein Beta HCG, Quant Urine Color Urine Clarity Urine pH Ur Specific [place] Urine Protein Urine Glucose (UA) Urine Ketones Urine Blood Urine Nitrate Urine Bilirubin Urine Urobilinogen Ur Leukocyte Esterase Urine WBC (Auto) Urine RBC (Auto) Ur Squamous Epith Cells Urine Bacteria Urine HCG, Qual Urine Opiates Screen Urine Methadone Screen Ur Barbiturates Screen Ur Phencyclidine Scrn Ur Amphetamines Screen U Benzodiazepines Scrn U Oth Cocaine Metabols U Cannabinoids Screen Alcohol, Quantitative IgG Hepatitis A IgM Ab Negative Hep Bs Antigen Negative Hep B Core IgM Ab Negative Hepatitis C Antibody Negative 05/12/17 05/12/17 11:41 11:41 WBC RBC Hgb Hct MCV MCH MCHC RDW Plt Count MPV Neut % (Auto) Lymph % (Auto) [place] % (Auto) Eos % (Auto) Baso % (Auto) Neut # Lymph # [place] # Eos # Baso # Differential Comment PT INR Sodium Potassium Chloride Carbon Dioxide Anion Gap BUN Creatinine Est GFR ( Amer) Est GFR (Non-Af Amer) Random Glucose Calcium Total Bilirubin Direct Bilirubin GGT AST ALT Alkaline Phosphatase Total Protein Albumin Globulin Albumin/Globulin Ratio Alpha Fetoprotein 4.3 Beta HCG, Quant Urine Color Urine Clarity Urine pH Ur Specific [place] Urine Protein Urine Glucose (UA) Urine Ketones Urine Blood Urine Nitrate Urine Bilirubin Urine Urobilinogen Ur Leukocyte Esterase Urine WBC (Auto) Urine RBC (Auto) Ur Squamous Epith Cells Urine Bacteria Urine HCG, Qual Urine Opiates Screen Urine Methadone Screen Ur Barbiturates Screen Ur Phencyclidine Scrn Ur Amphetamines Screen U Benzodiazepines Scrn U Oth Cocaine Metabols U Cannabinoids Screen Alcohol, Quantitative IgG 2063.3 H Hepatitis A IgM Ab Hep Bs Antigen Hep B Core IgM Ab Hepatitis C Antibody Attending/Attestation - Attestation I have personally seen and examined this patient.: Yes I have fully participated in the care of the patient.: Yes I have reviewed all pertinent clinical information: Yes Notes (Text): 05/12/17 16:13 I have seen and examined patient with GI fellow. Agree with above documentation with the following additions. In brief, this is a 36 year old female with history of DM, HTN, seizure disorder, opioid addiction on methadone , ETOH abuse, SBO s/p partial resection, who presents to hospital with complaint of increasing abdominal girth and associated abdominal pain for the past one week. She admits to ongoing ETOH abuse (1/2 pint vodka daily) and was acutely intoxicated on arrival to hospital. She describes a generalized abdominal discomfort radiating to R groin region that is worse when standing erect. She denies nausea, vomiting, diarrhea, fever/chills, or rectal bleeding. She does endorse an unintentional weight loss of nearly 20 pounds over the past few months. She claims to have an EGD/colonoscopy nearly 20 years ago which were normal according to her. DM / HTN Opioid addiction on methadone ETOH cirrhosis admission MELD 11 Acute ETOH hepatitis with DF 10.6 US imaging reviewed by me showing scant yolanda-hepatic ascites not significant enough to perform paracentesis - Low sodium diet as tolerated - LFTs stable, continue to monitor. Obtain viral hepatitis and autoimmune serology testing. - Obtain CT triple phase liver for further evaluation of HCC, particularly given unexplained weight loss - Obtain AFP - Patient would benefit from elective outpatient EGD for variceal screening - Will continue to monitor patient clinical course
[2017-05-12] MEDS: Insulin Detemir 100 units/ml Vial (Levemir) SC SCH ×2 (10:25→21:18)
[2017-05-12] MEDS: Pantoprazole 40 mg Susp UD PO SCH (10:27)
--- NOTE | 2017-05-12 11:52 | US ---
HISTORY: CHECK FOR ASCITES COMPARISON: CT scan of the abdomen pelvis dated 05/11/2017. TECHNIQUE: Grayscale sonographic evaluation of the four quadrants of the abdomen. FINDINGS: Sonographic evaluation of the 4 quadrants for ascites revealed trace ascites. There was not enough fluid for safe percutaneous aspiration. Paracentesis was not performed. The patient was transferred back to the floor. IMPRESSION: Trace ascites, not enough for safe percutaneous aspiration. Paracentesis not performed.
[2017-05-12] MEDS: (Novolin R) Insulin Human Regular 100 units/ml vial SC SCH ×3 (12:19→21:18)
--- NOTE | 2017-05-12 14:05 | CP.PCM.HP ---
Past Patient History - Infectious Disease Hx of Infectious Diseases: None - Past Social History Smoking Status: Heavy Smoker > 10 Cigarettes Daily - CARDIAC Hx Cardiac Disorders: Yes Hx Hypertension: Yes - PULMONARY Hx Respiratory Disorders: Yes Hx Asthma: Yes - NEUROLOGICAL Hx Neurological Disorder: Yes Hx Seizures: Yes (EPILEPSY) - HEENT Hx HEENT Problems: No - RENAL Hx Chronic Kidney Disease: No - ENDOCRINE/METABOLIC Hx Endocrine Disorders: Yes Hx Diabetes Mellitus Type 2: Yes (INSULIN DEPENDENT) - HEMATOLOGICAL/ONCOLOGICAL Hx Blood Disorders: No Hx Cancer: No Hx Human Immunodeficiency Virus (HIV): No - INTEGUMENTARY Hx Dermatological Problems: No - MUSCULOSKELETAL/RHEUMATOLOGICAL Hx Musculoskeletal Disorders: No Hx Falls: No - GASTROINTESTINAL Hx Gastrointestinal Disorders: No - GENITOURINARY/GYNECOLOGICAL Hx Genitourinary Disorders: No Hx Sexually Transmitted Disorders: No - PSYCHIATRIC Hx Psychophysiologic Disorder: No Hx Substance Use: No - SURGICAL HISTORY Hx Surgeries: Yes Hx Appendectomy: Yes Hx Cholecystectomy: Yes - ANESTHESIA Hx Anesthesia: Yes Hx Anesthesia Reactions: No Meds Allergies/Adverse Reactions: Allergies Allergy/AdvReac Type Severity Reaction Status Date / Time FISH Allergy Verified 05/11/17 17:49 paroxetine [From Paxil] Allergy Verified 05/11/17 17:49 shellfish derived Allergy Verified 05/11/17 17:49 Physical Exam - Constitutional Appears: Well - Head Exam Head Exam: ATRAUMATIC, NORMAL INSPECTION, NORMOCEPHALIC - Eye Exam Eye Exam: EOMI, Normal appearance, PERRL Pupil Exam: NORMAL ACCOMODATION, PERRL - ENT Exam ENT Exam: Mucous Membranes Moist, Normal Exam - Neck Exam Neck exam: Positive for: Normal Inspection - Respiratory Exam Respiratory Exam: Decreased Breath Sounds - Cardiovascular Exam Cardiovascular Exam: REGULAR RHYTHM, +S1, +S2 - GI/Abdominal Exam GI & Abdominal Exam: Diminished Bowel Sounds, Soft - Rectal Exam Rectal Exam: Deferred Results - Vital Signs Recent Vital Signs: Last Vital Signs Temp 98.6 F 05/12/17 08:00 Pulse 84 05/12/17 08:00 Resp 20 05/12/17 08:00 BP 117/74 05/12/17 08:00 Pulse Ox 95 05/12/17 08:00 - Labs Result Diagrams: 05/12/17 08:31 05/12/17 08:31 Labs: Laboratory Results - last 24 hr 05/11/17 05/11/17 05/11/17 18:58 18:58 19:27 WBC 5.9 RBC 3.82 Hgb 13.0 Hct 37.8 MCV 99.0 MCH 34.0 H MCHC 34.3 RDW 14.1 Plt Count 112 L MPV 8.7 Neut % (Auto) 68.3 Lymph % (Auto) 20.7 [place] % (Auto) 7.6 Eos % (Auto) 2.7 Baso % (Auto) 0.7 Neut # 4.0 Lymph # 1.2 [place] # 0.4 Eos # 0.2 Baso # 0.0 Differential Comment PT INR Sodium Potassium Chloride Carbon Dioxide Anion Gap BUN Creatinine Est GFR ( Amer) Est GFR (Non-Af Amer) Random Glucose Calcium Total Bilirubin Direct Bilirubin GGT AST ALT Alkaline Phosphatase Total Protein Albumin Globulin Albumin/Globulin Ratio Alpha Fetoprotein Beta HCG, Quant Urine Color Straw Urine Clarity Clear Urine pH 7.0 Ur Specific [place] 1.003 Urine Protein Negative Urine Glucose (UA) Normal Urine Ketones Negative Urine Blood Negative Urine Nitrate Negative Urine Bilirubin Negative Urine Urobilinogen Normal Ur Leukocyte Esterase 2+ H Urine WBC (Auto) 7 H Urine RBC (Auto) < 1 Ur Squamous Epith Cells 5 Urine Bacteria Rare Urine HCG, Qual Negative Urine Opiates Screen Negative Urine Methadone Screen Positive H Ur Barbiturates Screen Negative Ur Phencyclidine Scrn Negative Ur Amphetamines Screen Negative U Benzodiazepines Scrn Negative U Oth Cocaine Metabols Negative U Cannabinoids Screen Negative Alcohol, Quantitative IgG Hepatitis A IgM Ab Hep Bs Antigen Hep B Core IgM Ab Hepatitis C Antibody 05/11/17 05/11/17 05/12/17 19:27 19:27 08:31 WBC 5.3 RBC 3.46 L Hgb 11.8 Hct 34.1 MCV 98.6 MCH 34.1 H MCHC 34.6 RDW 14.0 Plt Count 101 L MPV 8.7 Neut % (Auto) 63.0 Lymph % (Auto) 24.6 [place] % (Auto) 8.7 Eos % (Auto) 2.8 Baso % (Auto) 0.9 Neut # 3.4 Lymph # 1.3 [place] # 0.5 Eos # 0.1 Baso # 0.0 Differential Comment PT INR Sodium 136 Potassium 3.6 Chloride 106 Carbon Dioxide 23 Anion Gap 10 BUN 3 L Creatinine 0.4 L Est GFR ( Amer) > 60 Est GFR (Non-Af Amer) > 60 Random Glucose 103 Calcium 7.2 L Total Bilirubin 1.7 H Direct Bilirubin GGT AST 123 H ALT 41 Alkaline Phosphatase 172 H Total Protein 7.1 Albumin 2.9 L Globulin 4.2 H Albumin/Globulin Ratio 0.7 L Alpha Fetoprotein Beta HCG, Quant < 2.39 Urine Color Urine Clarity Urine pH Ur Specific [place] Urine Protein Urine Glucose (UA) Urine Ketones Urine Blood Urine Nitrate Urine Bilirubin Urine Urobilinogen Ur Leukocyte Esterase Urine WBC (Auto) Urine RBC (Auto) Ur Squamous Epith Cells Urine Bacteria Urine HCG, Qual Urine Opiates Screen Urine Methadone Screen Ur Barbiturates Screen Ur Phencyclidine Scrn Ur Amphetamines Screen U Benzodiazepines Scrn U Oth Cocaine Metabols U Cannabinoids Screen Alcohol, Quantitative 176 H IgG Hepatitis A IgM Ab Hep Bs Antigen Hep B Core IgM Ab Hepatitis C Antibody 05/12/17 05/12/17 05/12/17 08:31 08:31 08:31 WBC RBC Hgb Hct MCV MCH MCHC RDW Plt Count MPV Neut % (Auto) Lymph % (Auto) [place] % (Auto) Eos % (Auto) Baso % (Auto) Neut # Lymph # [place] # Eos # Baso # Differential Comment PT 13.9 H INR 1.2 Sodium 131 L Potassium 3.9 Chloride 103 Carbon Dioxide 26 Anion Gap 6 L BUN 5 L Creatinine 0.4 L Est GFR ( Amer) > 60 Est GFR (Non-Af Amer) > 60 Random Glucose 90 Calcium 7.3 L Total Bilirubin 1.9 H Direct Bilirubin 0.3 GGT 334 H AST 106 H ALT 44 Alkaline Phosphatase 149 H Total Protein 6.3 Albumin 2.6 L Globulin 3.8 Albumin/Globulin Ratio 0.7 L Alpha Fetoprotein Beta HCG, Quant Urine Color Urine Clarity Urine pH Ur Specific [place] Urine Protein Urine Glucose (UA) Urine Ketones Urine Blood Urine Nitrate Urine Bilirubin Urine Urobilinogen Ur Leukocyte Esterase Urine WBC (Auto) Urine RBC (Auto) Ur Squamous Epith Cells Urine Bacteria Urine HCG, Qual Urine Opiates Screen Urine Methadone Screen Ur Barbiturates Screen Ur Phencyclidine Scrn Ur Amphetamines Screen U Benzodiazepines Scrn U Oth Cocaine Metabols U Cannabinoids Screen Alcohol, Quantitative IgG Hepatitis A IgM Ab Negative Hep Bs Antigen Negative Hep B Core IgM Ab Negative Hepatitis C Antibody Negative 05/12/17 05/12/17 11:41 11:41 WBC RBC Hgb Hct MCV MCH MCHC RDW Plt Count MPV Neut % (Auto) Lymph % (Auto) [place] % (Auto) Eos % (Auto) Baso % (Auto) Neut # Lymph # [place] # Eos # Baso # Differential Comment PT INR Sodium Potassium Chloride Carbon Dioxide Anion Gap BUN Creatinine Est GFR ( Amer) Est GFR (Non-Af Amer) Random Glucose Calcium Total Bilirubin Direct Bilirubin GGT AST ALT Alkaline Phosphatase Total Protein Albumin Globulin Albumin/Globulin Ratio Alpha Fetoprotein 4.3 Beta HCG, Quant Urine Color Urine Clarity Urine pH Ur Specific [place] Urine Protein Urine Glucose (UA) Urine Ketones Urine Blood Urine Nitrate Urine Bilirubin Urine Urobilinogen Ur Leukocyte Esterase Urine WBC (Auto) Urine RBC (Auto) Ur Squamous Epith Cells Urine Bacteria Urine HCG, Qual Urine Opiates Screen Urine Methadone Screen Ur Barbiturates Screen Ur Phencyclidine Scrn Ur Amphetamines Screen U Benzodiazepines Scrn U Oth Cocaine Metabols U Cannabinoids Screen Alcohol, Quantitative IgG 2063.3 H Hepatitis A IgM Ab Hep Bs Antigen Hep B Core IgM Ab Hepatitis C Antibody
[2017-05-12] MEDS: Multiple Vitamins Tab PO SCH (16:45)
[2017-05-13 07:09] LABS: BASO % 0.3 % (0.0-2.0); EOS # 0.1 K/uL (0.0-0.7); EOS % 2.9 % (0.0-4.0); HEMOGLOBIN 11.6 g/dL (11.0-16.0); LYMPH % 21.4 % (20.0-40.0); MEAN CELL VOLUME 99.2 fL (81.0-99.0); MEAN CORPUSCULAR HEMOGLOBIN 34.3 pg (27.0-31.0); MEAN CORPUSCULAR HGB CONC 34.6 g/dL (33.0-37.0); MEAN PLATELET VOLUME 9.8 fL (7.2-11.7); MONO # 0.4 K/uL (0.0-0.8); MONO % 9.7 % (0.0-10.0); NEUT # 2.9 K/uL (1.8-7.0); NEUT % 65.7 % (50.0-75.0); NRBC % 0.1 % (0.0-2.0); RBC 3.38 Mil/uL (3.80-5.20); RED CELL DISTRIBUTION WIDTH 13.9 % (11.5-14.5); WHITE BLOOD COUNT 4.5 K/uL (4.8-10.8)
[2017-05-13 07:24] LABS: ALB/GLOB RATIO 0.7 (1.0-2.1); ALBUMIN 2.5 g/dL (3.5-5.0); ALT/SGPT 37 U/L (9-52); AST/SGOT 95 U/L (14-36); BLOOD UREA NITROGEN 7 mg/dL (7-17); CALCIUM 7.5 mg/dl (8.6-10.4); GFR AFRICAN-AMERICAN > 60; GFR NON-AFRICAN AMERICAN > 60; MAGNESIUM 1.6 mg/dL (1.6-2.3)
[2017-05-13] MEDS: (Novolog) Insulin Aspart, Recombinant 100 u/ml 10 ml vial SC SCH ×4 (07:46→22:27)
--- NOTE | 2017-05-13 08:06 | CP.PCM.PN ---
<Martina Avilez - Last Filed: 05/13/17 08:11> Subjective - Date & Time of Evaluation Date of Evaluation: 05/13/17 Time of Evaluation: 07:00 - Subjective Subjective: GI Fellow PGY4 Progress Note Pt seen and evaluated at bedside, pt says she feels shaky and nauseous, per nursing she has been receiving her librium overnight. Pt tolerating diet with no vomiting, abdominal pain is better. Nurse/Pharmacist did not dispense pre- medication with steroids to pt for CT scan as ordered so will need to reorder test and steroid dose. ROS: A 12pt ROS was negative except as above. Objective - Vital Signs/Intake and Output Vital Signs (last 24 hours): Temp Pulse Resp BP Pulse Ox 98.6 F 83 20 121/80 94 L 05/13/17 00:00 05/13/17 00:00 05/13/17 00:00 05/13/17 00:00 05/13/17 00:00 Intake and Output: 05/13/17 05/13/17 06:59 18:59 Intake Total 400 Balance 400 - Medications Medications: Current Medications Chlordiazepoxide (Librium) 25 mg PO Q8 PRN PRN Reason: Anxiety Last Admin: 05/13/17 05:40 Dose: 25 mg Dextrose (Dextrose 50% Inj) 0 ml IV STAT PRN; Protocol PRN Reason: Hypoglycemia Protocol Dextrose (Glutose 15) 0 gm PO ONCE PRN; Protocol PRN Reason: Hypoglycemia Protocol Diphenhydramine HCl (Benadryl) 50 mg PO ONCE ONE Stop: 05/13/17 19:01 Enoxaparin Sodium (Lovenox) 40 mg SC DAILY [facility] Folic Acid (Folic Acid) 1 mg PO DAILY [facility] Last Admin: 05/12/17 16:45 Dose: 1 mg Glucagon (Glucagen Diagnostic Kit) 0 mg IM STAT PRN; Protocol PRN Reason: Hypoglycemia Protocol Hydromorphone HCl (Dilaudid) 1 mg IVP Q8H PRN PRN Reason: Pain, severe (8-10) Last Admin: 05/12/17 02:20 Dose: 1 mg Dextrose (Dextrose 5% In Water 1000 Ml) 1,000 mls @ 0 mls/hr IV .Q0M PRN; Protocol; Per Protocol PRN Reason: Hypoglycemia Protocol Insulin Aspart (Novolog) 0 unit SC ACHS [facility] PRN Reason: Protocol Last Admin: 05/13/17 07:46 Dose: Not Given Insulin Detemir (Levemir) 70 unit SC Q12 [facility] Last Admin: 05/12/17 21:18 Dose: Not Given Lorazepam (Ativan) 2 mg IVP Q6H PRN PRN Reason: Seizure activity Last Admin: 05/12/17 16:48 Dose: 2 mg Methadone HCl (Methadone) 40 mg PO DAILY [facility] Last Admin: 05/12/17 10:24 Dose: 40 mg Multivitamins (Hexavitamin) 1 tab PO DAILY [facility] Last Admin: 05/12/17 16:45 Dose: 1 tab Nicotine (Nicoderm Cq) 1 patch TD DAILY [facility] Last Admin: 05/12/17 14:45 Dose: 1 patch Ondansetron HCl (Zofran Inj) 4 mg IVP Q6H PRN PRN Reason: Nausea/Vomiting Last Admin: 05/12/17 10:23 Dose: 4 mg Pantoprazole Sodium (Protonix Susp) 40 mg PO DAILY [facility] Last Admin: 05/12/17 10:27 Dose: Not Given Pneumococcal Polyvalent Vaccine (Pneumovax 23 Vaccine) 0.5 ml IM .ONCE ONE Stop: 05/13/17 10:01 Prednisone (Prednisone Tab) 50 mg PO ONCE ONE Stop: 05/13/17 13:01 Thiamine HCl (Vitamin B1 Tab) 100 mg PO DAILY [facility] Last Admin: 05/12/17 16:45 Dose: 100 mg - Labs Labs: 05/13/17 07:00 05/13/17 07:00 PT 13.9 SECONDS (9.7-12.2) H 05/12/17 08:31 INR 1.2 05/12/17 08:31 - Constitutional Appears: Non-toxic, No Acute Distress - Head Exam Head Exam: ATRAUMATIC, NORMAL INSPECTION, NORMOCEPHALIC - Eye Exam Eye Exam: EOMI, Normal appearance, PERRL - ENT Exam ENT Exam: Mucous Membranes Moist, Normal Exam - Neck Exam Neck Exam: Normal Inspection - Respiratory Exam Respiratory Exam: Clear to Ausculation Bilateral, NORMAL BREATHING PATTERN - Cardiovascular Exam Cardiovascular Exam: Tachycardia - GI/Abdominal Exam GI & Abdominal Exam: Distended, Soft, Tenderness, Normal Bowel Sounds - Extremities Exam Extremities Exam: Full ROM - Neurological Exam Neurological Exam: Alert, Awake, Oriented x3 Additional comments: tremulous - Psychiatric Exam Psychiatric exam: Anxious, Normal Mood - Skin Skin Exam: Dry, Intact, Normal Color, Warm Assessment and Plan - Assessment and Plan (Free Text) Assessment: This is a 36yF presenting for alcohol and drug detox and increasing fluid in her abdomen. 1. 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 Alcohol Abuse 3. Elevated LFTs 4. Hx of opioid addiction on methadone 5. Hx DM, Hx Seizures, Hx HTN Plan: -Continue supportive care with pain control, anti-emetics, withdrawal medications -Pt with small ascites on exam and on CT imaging, consulted IR for paracentesis , not enough fluid to be tapped -CT imaging reviewed with nodular liver, hepatomegally concern for cirrhosis will order CT Liver Triple phase to r/o HCC and AFP negative -Nurse/Pharmacist did not dispense pre-medication with steroids to pt for CT scan as ordered so will need to reorder test and steroid dose due to allergy to shellfish -Elevated LFTs likely from alcohol abuse down trending -Hepatitis panel negative and autoimmune workup pending -Discussed with pt about alcohol cessation and current diagnosis -Pt will need oupt EGD for variceal screening -Will continue to follow pt closely <Twan Vargas - Last Filed: 05/13/17 14:03> Objective - Vital Signs/Intake and Output Vital Signs (last 24 hours): Temp Pulse Resp BP Pulse Ox 98.5 F 80 20 105/65 98 05/13/17 09:13 05/13/17 09:13 05/13/17 09:13 05/13/17 09:13 05/13/17 09:13 Intake and Output: 05/13/17 05/13/17 06:59 18:59 Intake Total 400 Balance 400 - Medications Medications: Current Medications Albuterol/Ipratropium (Duoneb 3 Mg/0.5 Mg (3 Ml) Ud) 3 ml INH RQ6 PRN PRN Reason: Shortness of Breath Chlordiazepoxide (Librium) 25 mg PO Q8 PRN PRN Reason: Anxiety Last Admin: 05/13/17 05:40 Dose: 25 mg Chlordiazepoxide (Librium) 25 mg PO Q8H [facility] PRN Reason: Taper Stop: 05/16/17 11:59 Last Admin: 05/13/17 11:53 Dose: 25 mg Dextrose (Dextrose 50% Inj) 0 ml IV STAT PRN; Protocol PRN Reason: Hypoglycemia Protocol Dextrose (Glutose 15) 0 gm PO ONCE PRN; Protocol PRN Reason: Hypoglycemia Protocol Diphenhydramine HCl (Benadryl) 50 mg PO ONCE ONE Stop: 05/13/17 19:01 Enoxaparin Sodium (Lovenox) 40 mg SC DAILY [facility] Folic Acid (Folic Acid) 1 mg PO DAILY [facility] Last Admin: 05/13/17 10:17 Dose: 1 mg Gabapentin (Neurontin) 100 mg PO TID [facility] Last Admin: 05/13/17 13:20 Dose: 100 mg Glucagon (Glucagen Diagnostic Kit) 0 mg IM STAT PRN; Protocol PRN Reason: Hypoglycemia Protocol Hydromorphone HCl (Dilaudid) 1 mg IVP Q8H PRN PRN Reason: Pain, severe (8-10) Last Admin: 05/12/17 02:20 Dose: 1 mg Dextrose (Dextrose 5% In Water 1000 Ml) 1,000 mls @ 0 mls/hr IV .Q0M PRN; Protocol; Per Protocol PRN Reason: Hypoglycemia Protocol Insulin Aspart (Novolog) 0 unit SC ACHS [facility] PRN Reason: Protocol Last Admin: 05/13/17 11:54 Dose: 3 unit Insulin Detemir (Levemir) 70 unit SC Q12 [facility] Last Admin: 05/13/17 10:18 Dose: Not Given Methadone HCl (Methadone) 30 mg PO Q24H [facility] PRN Reason: Taper Stop: 05/19/17 09:59 Multivitamins (Hexavitamin) 1 tab PO DAILY [facility] Last Admin: 05/13/17 10:17 Dose: 1 tab Nicotine (Nicoderm Cq) 1 patch TD DAILY [facility] Last Admin: 05/13/17 10:22 Dose: 1 patch Ondansetron HCl (Zofran Inj) 4 mg IVP Q6H PRN PRN Reason: Nausea/Vomiting Last Admin: 05/12/17 10:23 Dose: 4 mg Pantoprazole Sodium (Protonix Susp) 40 mg PO DAILY [facility] Last Admin: 05/13/17 10:17 Dose: 40 mg Thiamine HCl (Vitamin B1 Tab) 100 mg PO DAILY [facility] Last Admin: 05/13/17 10:17 Dose: 100 mg - Labs Labs: 05/13/17 07:00 05/13/17 07:00 PT 13.9 SECONDS (9.7-12.2) H 05/12/17 08:31 INR 1.2 05/12/17 08:31 Attending/Attestation - Attestation I have personally seen and examined this patient.: Yes I have fully participated in the care of the patient.: Yes I have reviewed all pertinent clinical information, including history, physical exam and plan: Yes Notes (Text): 05/13/17 14:00 I have seen and examined patient with GI fellow. No acute events overnight, she is seen sitting in bed watching television. She endorses ongoing nausea and tremors but otherwise denies abdominal pain, fever/chills, vomiting. Tolerating PO diet without difficulty. Review of vitals from today are normal. ETOH decompensated cirrhosis Acute ETOH hepatitis, transaminitis DM / HTN Seizure disorder - Low sodium diet as tolerated - Monitor for signs of ETOH withdrawal - LFTs stable, continue to monitor, awaiting autoimmune panel - Awaiting CT liver protocol to r/o HCC given unexplained weight loss - Further endoscopic workup can be performed electively as outpatient. Will continue to monitor patient clinical course.
--- NOTE | 2017-05-13 09:02 | CP.PCM.PN ---
Subjective - Date & Time of Evaluation Date of Evaluation: 05/13/17 Time of Evaluation: 09:00 - Subjective Subjective: Progress Note for Dr. Carrion's Service Patient seen and examined at bedside this morning. She complains of abdominal cramps but denies trembling, fevers, other characteristic w/d symptoms. She explains that she has only been drinking daily for 1 month. Prior to this month she does not have any hx of alcohol abuse and only drank sparingly/ occasionally. She denies F/C/CP/SOB/D/C. She admits to a poor sleep last night and feeling restless. Objective - Vital Signs/Intake and Output Vital Signs (last 24 hours): Temp Pulse Resp BP Pulse Ox 98.6 F 83 20 121/80 94 L 05/13/17 00:00 05/13/17 00:00 05/13/17 00:00 05/13/17 00:00 05/13/17 00:00 Intake and Output: 05/13/17 05/13/17 06:59 18:59 Intake Total 400 Balance 400 - Medications Medications: Current Medications Chlordiazepoxide (Librium) 25 mg PO Q8 PRN PRN Reason: Anxiety Last Admin: 05/13/17 05:40 Dose: 25 mg Dextrose (Dextrose 50% Inj) 0 ml IV STAT PRN; Protocol PRN Reason: Hypoglycemia Protocol Dextrose (Glutose 15) 0 gm PO ONCE PRN; Protocol PRN Reason: Hypoglycemia Protocol Diphenhydramine HCl (Benadryl) 50 mg PO ONCE ONE Stop: 05/13/17 19:01 Enoxaparin Sodium (Lovenox) 40 mg SC DAILY [facility] Folic Acid (Folic Acid) 1 mg PO DAILY [facility] Last Admin: 05/12/17 16:45 Dose: 1 mg Glucagon (Glucagen Diagnostic Kit) 0 mg IM STAT PRN; Protocol PRN Reason: Hypoglycemia Protocol Hydromorphone HCl (Dilaudid) 1 mg IVP Q8H PRN PRN Reason: Pain, severe (8-10) Last Admin: 05/12/17 02:20 Dose: 1 mg Dextrose (Dextrose 5% In Water 1000 Ml) 1,000 mls @ 0 mls/hr IV .Q0M PRN; Protocol; Per Protocol PRN Reason: Hypoglycemia Protocol Insulin Aspart (Novolog) 0 unit SC ACHS [facility] PRN Reason: Protocol Last Admin: 05/13/17 07:46 Dose: Not Given Insulin Detemir (Levemir) 70 unit SC Q12 [facility] Last Admin: 05/12/17 21:18 Dose: Not Given Lorazepam (Ativan) 2 mg IVP Q6H PRN PRN Reason: Seizure activity Last Admin: 05/12/17 16:48 Dose: 2 mg Methadone HCl (Methadone) 40 mg PO DAILY [facility] Last Admin: 05/12/17 10:24 Dose: 40 mg Multivitamins (Hexavitamin) 1 tab PO DAILY [facility] Last Admin: 05/12/17 16:45 Dose: 1 tab Nicotine (Nicoderm Cq) 1 patch TD DAILY [facility] Last Admin: 05/12/17 14:45 Dose: 1 patch Ondansetron HCl (Zofran Inj) 4 mg IVP Q6H PRN PRN Reason: Nausea/Vomiting Last Admin: 05/12/17 10:23 Dose: 4 mg Pantoprazole Sodium (Protonix Susp) 40 mg PO DAILY [facility] Last Admin: 05/12/17 10:27 Dose: Not Given Pneumococcal Polyvalent Vaccine (Pneumovax 23 Vaccine) 0.5 ml IM .ONCE ONE Stop: 05/13/17 10:01 Prednisone (Prednisone Tab) 50 mg PO ONCE ONE Stop: 05/13/17 13:01 Thiamine HCl (Vitamin B1 Tab) 100 mg PO DAILY [facility] Last Admin: 05/12/17 16:45 Dose: 100 mg - Labs Labs: 05/13/17 07:00 05/13/17 07:00 PT 13.9 SECONDS (9.7-12.2) H 05/12/17 08:31 INR 1.2 05/12/17 08:31 - Constitutional Appears: No Acute Distress - Head Exam Head Exam: ATRAUMATIC, NORMOCEPHALIC - Eye Exam Eye Exam: EOMI - ENT Exam ENT Exam: Mucous Membranes Moist - Respiratory Exam Respiratory Exam: Clear to Ausculation Bilateral, NORMAL BREATHING PATTERN - Cardiovascular Exam Cardiovascular Exam: REGULAR RHYTHM, +S1, +S2 - GI/Abdominal Exam GI & Abdominal Exam: Soft, Tenderness, Normal Bowel Sounds - Extremities Exam Extremities Exam: absent: Calf Tenderness - Neurological Exam Neurological Exam: Alert, Awake, Oriented x3 - Psychiatric Exam Psychiatric exam: Anxious - Skin Skin Exam: Dry, Warm Assessment and Plan - Assessment and Plan (Free Text) Plan: Alcohol abuse complicated by Alcoholic Cirrhosis CIWA protocol Librium and Ativan prn ordered thiamine, folic acid, and multivitamin Dilauded 1mg IV prn severe pain Alcohol cessation reinforced GI consulted- Dr. Vargas- recs appreciated supportive care with pain control, anti-emetics, withdrawal medications MELD score 11 on admission Pt will need oupt EGD for variceal screening U/S abdomen- Trace ascites IR consulted for paracentesis, however not enough fluid to be tapped CT abdomen Free air within mer hepatis- questionable perforated ulcer Enlarged/abnormal liver- c/o mets Splenomegaly w/ ascites Anasarca GI order- CT Liver Triple phase to r/o HCC AFP negative Transaminitis-down trending AST/ALT 95/37 Hepatitis panel negative Autoimmune workup pending Psych consult placed- recs appreciated Thrombocytopenia Likely secondary to EtOH abuse Will continue to monitor Diabetes mellitus continue home insulin- Levemir 70U SC q12hrs ISS accu check ACHS hypolycemia protocol Asthma Duoneb q6h prn for wheezing. Tobacco use disorder Nicoderm patch Smoking cessation reinforcement Methadone use continue home methadone- 40mg PO daily Psych consult placed- recs appreciated Elevated B-HCG Pelvic u/s- no intrauterine Prophylactic measures Lovenox on hold due to low [place] count Protonix 40mg PO daily Zofran 4mg IVP q6hrs prn nausea SCDs Case discussed with Dr. Carrion. All management as per Dr. Carrion.
[2017-05-13] MEDS ORDERED: Albuterol-Ipratrop 3 mg / 0.5 (3 ml) UD INH PRN (09:27)
[2017-05-13] MEDS ORDERED: Pneumococcal 23-Valent Vaccine IM ONE (10:00)
[2017-05-13] MEDS ORDERED: Influenza Vaccine 60 mcg/0.5 mL SYR (4YR UP) IM ONE (10:00)
[2017-05-13] MEDS: Pantoprazole 40 mg Susp UD PO SCH (10:17)
[2017-05-13] MEDS: Multiple Vitamins Tab PO SCH (10:17)
[2017-05-13] MEDS: Insulin Detemir 100 units/ml Vial (Levemir) SC SCH ×2 (10:18→22:25)
--- NOTE | 2017-05-13 13:10 | PCM.PSYCH ---
Initial Psychiatric Evaluation - Initial Psychiatric Evaluation Type of Admission: Voluntary Legal Status: Capacity Chief Complaint (in patient's own words): "Not well" History of Present Illness and Precipitating Events: The patient is seen, chart reviewed and case discussed. This is a 26-year-old [place] descent female, single with 2 children aged 16 and 7. Children are with their father). The patient lives with her children and her current boyfriend of a year. 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 She lives in [facility]. Consultation was requested because of her alcohol and opiate use. The patient reports drinking 6-7 ounces what go every day for about 5 years. She may be minimizing because she has some alcohol related problems. She claims she was "heavily" using for the last 2 months. Her drug of choice was opiates however. She started 6 years ago and then 3 years ago she was put on methadone maintenance program at [facility] in [facility]. Her dose was 40 mg most recently but she use to take up 140 mg in the past. On 04/25/17 she was discharged from the program because of her alcohol use but she was told to come back if she can prove that she went to detox. She plans to go back to her methadone program. Since her last methadone dose she had been purchasing methadone from a friend and using around 15 mg a day. She denies all other drugs but smokes half pack per day cigarettes. The patient was but had a miscarriage and she hated from her boyfriend. Past psych history: Denies Family psych history Brother has 6 affective disorder Medical history: Liver damage off unknown reason. Diabetes type 1 and epilepsy Current Medications: Active Medications Generic Name Dose Route Start Last Admin Trade Name Freq PRN Reason Stop Dose Admin Albuterol/Ipratropium 3 ml 05/13/17 09:27 Duoneb 3 Mg/0.5 Mg (3 Ml) Ud INH RQ6 PRN Shortness of Breath Chlordiazepoxide 25 mg 05/12/17 09:49 05/13/17 05:40 Librium PO 25 mg Q8 PRN Administration Anxiety Chlordiazepoxide 25 mg 05/13/17 12:00 05/13/17 11:53 Librium PO 05/16/17 11:59 25 mg Q8H CHRISTINE Administration Taper Dextrose 0 ml 05/12/17 09:20 Dextrose 50% Inj IV STAT PRN Hypoglycemia Protocol Protocol Dextrose 0 gm 05/12/17 09:20 Glutose 15 PO ONCE PRN Hypoglycemia Protocol Protocol Diphenhydramine HCl 50 mg 05/13/17 19:00 Benadryl PO 05/13/17 19:01 ONCE ONE Enoxaparin Sodium 40 mg 05/12/17 10:00 Lovenox SC DAILY [facility]INE Folic Acid 1 mg 05/12/17 15:45 05/13/17 10:17 Folic Acid PO 1 mg DAILY [facility]STINE Administration Glucagon 0 mg 05/12/17 09:20 Glucagen Diagnostic Kit IM STAT PRN Hypoglycemia Protocol Protocol Hydromorphone HCl 1 mg 05/12/17 02:20 05/12/17 02:20 Dilaudid IVP 1 mg Q8H PRN Administration Pain, severe (8-10) Dextrose 1,000 mls @ 0 mls/hr 05/12/17 09:20 Dextrose 5% In Water 1000 Ml IV .Q0M PRN Hypoglycemia Protocol Protocol Per Protocol Insulin Aspart 0 unit 05/12/17 07:30 05/13/17 11:54 Novolog SC 3 unit ACHS CHRISTINE Administration Protocol Insulin Detemir 70 unit 05/12/17 10:00 05/13/17 10:18 Levemir SC Not Given Q12 [facility]INE Methadone HCl 30 mg 05/14/17 10:00 Methadone PO 05/19/17 09:59 Q24H CHRISTINE Taper Multivitamins 1 tab 05/12/17 15:45 05/13/17 10:17 Hexavitamin PO 1 tab DAILY [facility]INE Administration Nicotine 1 patch 05/12/17 13:45 05/13/17 10:22 Nicoderm Cq TD 1 patch DAILY [facility]INE Administration Ondansetron HCl 4 mg 05/12/17 02:45 05/12/17 10:23 Zofran Inj IVP 4 mg Q6H PRN Administration Nausea/Vomiting Pantoprazole Sodium 40 mg 05/12/17 10:00 05/13/17 10:17 Protonix Susp PO 40 mg DAILY [facility]INE Administration Thiamine HCl 100 mg 05/12/17 15:45 05/13/17 10:17 Vitamin B1 Tab PO 100 mg DAILY [facility]STINE Administration Past Psychiatric History - Past Psychiatric History Previous Treatment History: None Pertinent Medical Hx (Current Medical&Sleep Prob, Allergies): Allergies Allergy/AdvReac Type Severity Reaction Status Date / Time FISH Allergy Verified 05/11/17 17:49 paroxetine [From Paxil] Allergy Verified 05/11/17 17:49 shellfish derived Allergy Verified 05/11/17 17:49 Review of Systems - Psychiatric Psychiatric: Abnormal Sleep Pattern, Anxiety, Irritability. absent: Hallucinations, Homicidal Ideation, Suicidal Ideation Mental Status Examination - Personal Presentation Personal Presentation: Looks stated age - Affect Affect: Constricted - Motor Activity Motor Activity: Calm - Reliability in Providing Information Reliability in Providing Information: Good - Speech Speech: Organized - Mood Mood: Anxious - Formal Thought Process Formal Thought Process: No Impairment - Cognitive Functions Orientation: Person, Place, Situation, Time Sensorium: Alert Attention/Concentration: Attentive Estimate of Intelligence: Average Judgement: Intact, as evidence by: Insight regarding need for hospitalization Memory: Recent intact, as evidence by: Ability to recall events of the day, Remote intact, as evidenced by: Abilit to recall sig. life events - Risk Risk: Withdrawal, Diminished functioning - Strength & Assets Inventory Strength & Assets Inventory: Cooperative - Limitations Limitations: Other DSM 5 DX - DSM 5 DSM 5 Diagnosis: Opioid withdrawal opioid use d/o - severe Alcohol withdrawal Alcohol use d/o - severe - Recommended/Plan of Treatment Treatment Recommendations and Plan of Treatment: Methadone detox Librium detox Gabapentin for augmentation As needed medications All risks, benefits and alternatives of the meds discussed, and the pt agreed and understood. Attend groups and activities Supportive therapy and psychoeducation ND for abstinence CBT for relapse prevention Encourage MAT Refer to rehab or IOP, and self-help groups Smoking cessation with ND Nicotine patch 34 min
[2017-05-13 17:05] VITALS: BP 114/71; PULSE 79; TEMP 98.1; O2SAT 97
--- NOTE | 2017-05-13 19:13 | CP.PCM.PN ---
Subjective - Date & Time of Evaluation Date of Evaluation: 05/13/17 Time of Evaluation: 08:40 - Subjective Subjective: clinically same Objective - Vital Signs/Intake and Output Vital Signs (last 24 hours): Temp Pulse Resp BP Pulse Ox 98.1 F 79 20 114/71 97 05/13/17 15:15 05/13/17 15:15 05/13/17 15:15 05/13/17 15:15 05/13/17 15:15 Intake and Output: 05/13/17 05/14/17 18:59 06:59 Intake Total 360 Balance 360 - Medications Medications: Current Medications Albuterol/Ipratropium (Duoneb 3 Mg/0.5 Mg (3 Ml) Ud) 3 ml INH RQ6 PRN PRN Reason: Shortness of Breath Chlordiazepoxide (Librium) 25 mg PO Q8 PRN PRN Reason: Anxiety Last Admin: 05/13/17 05:40 Dose: 25 mg Chlordiazepoxide (Librium) 25 mg PO Q8H CHRISTINE PRN Reason: Taper Stop: 05/16/17 11:59 Last Admin: 05/13/17 11:53 Dose: 25 mg Dextrose (Dextrose 50% Inj) 0 ml IV STAT PRN; Protocol PRN Reason: Hypoglycemia Protocol Dextrose (Glutose 15) 0 gm PO ONCE PRN; Protocol PRN Reason: Hypoglycemia Protocol Enoxaparin Sodium (Lovenox) 40 mg SC DAILY [facility] Folic Acid (Folic Acid) 1 mg PO DAILY [facility] Last Admin: 05/13/17 10:17 Dose: 1 mg Gabapentin (Neurontin) 100 mg PO TID [facility] Last Admin: 05/13/17 17:53 Dose: 100 mg Glucagon (Glucagen Diagnostic Kit) 0 mg IM STAT PRN; Protocol PRN Reason: Hypoglycemia Protocol Hydromorphone HCl (Dilaudid) 1 mg IVP Q8H PRN PRN Reason: Pain, severe (8-10) Last Admin: 05/12/17 02:20 Dose: 1 mg Dextrose (Dextrose 5% In Water 1000 Ml) 1,000 mls @ 0 mls/hr IV .Q0M PRN; Protocol; Per Protocol PRN Reason: Hypoglycemia Protocol Insulin Aspart (Novolog) 0 unit SC ACHS [facility] PRN Reason: Protocol Last Admin: 05/13/17 16:30 Dose: 2 unit Insulin Detemir (Levemir) 70 unit SC Q12 [facility] Last Admin: 05/13/17 10:18 Dose: Not Given Methadone HCl (Methadone) 30 mg PO Q24H [facility] PRN Reason: Taper Stop: 05/19/17 09:59 Multivitamins (Hexavitamin) 1 tab PO DAILY [facility] Last Admin: 05/13/17 10:17 Dose: 1 tab Nicotine (Nicoderm Cq) 1 patch TD DAILY [facility] Last Admin: 05/13/17 10:22 Dose: 1 patch Ondansetron HCl (Zofran Inj) 4 mg IVP Q6H PRN PRN Reason: Nausea/Vomiting Last Admin: 05/13/17 17:55 Dose: 4 mg Pantoprazole Sodium (Protonix Susp) 40 mg PO DAILY [facility] Last Admin: 05/13/17 10:17 Dose: 40 mg Thiamine HCl (Vitamin B1 Tab) 100 mg PO DAILY [facility] Last Admin: 05/13/17 10:17 Dose: 100 mg - Labs Labs: 05/13/17 07:00 05/13/17 07:00 PT 13.9 SECONDS (9.7-12.2) H 05/12/17 08:31 INR 1.2 05/12/17 08:31
[2017-05-13] MEDS ORDERED: Iodixanol 320 MG/ML 100 ML BOTTLE IV ONE (19:18)
--- NOTE | 2017-05-13 20:55 | CT ---
EXAM: CT Abdomen Without and With Intravenous Contrast EXAM DATE/TIME: 05/13/2017 8:00 PM CLINICAL HISTORY: 36 years old, female; Condition or disease; Liver condition; Cirrhosis; Patient HX: Pt was premedicated prior to CT for allergy; Additional info: Cirrhosis, evaluate for hcc TECHNIQUE: Axial computed tomography images of the abdomen without and with intravenous contrast. All CT scans at this facility use one or more dose reduction techniques, viz.: automated exposure control; ma/kV adjustment per patient size (including targeted exams where dose is matched to indication; i.e. head); or iterative reconstruction technique. Coronal and sagittal reformatted images were created and reviewed. CONTRAST: 100 mL of visipaque administered intravenously. COMPARISON: Prior CT abdomen and pelvis of 05/11/2017 FINDINGS: LOWER THORAX: Heart appears mildly enlarged. LIVER: The liver is enlarged. It is overall low in density compared to the spleen, compatible with diffuse fatty infiltration. It demonstrates a mildly, diffusely heterogeneous enhancement pattern. No definite focal, measurable liver lesions are seen. Portal vein is mildly enlarged. Multiple abdominal collateral vessels are seen. This constellation of findings is compatible with portal hypertension due to chronic liver disease. Normal enhancement of the portal vein. GALLBLADDER AND BILE DUCTS: Pneumobilia is again seen, of uncertain etiology, but could be post operative, such as related to prior sphincterotomy. Gallbladder is not seen, and is likely surgically absent, but recommend correlation with surgical history. PANCREAS: No CT evidence of acute pancreatitis. SPLEEN: Mild splenomegaly, with the spleen measuring 14 cm in length. ADRENALS:No acute abnormality of the adrenal glands identified. KIDNEYS AND URETERS: No acute abnormality of the kidneys identified. No evidence of hydroureteronephrosis. STOMACH AND BOWEL: Debris/retained food material throughout the lumen of the stomach. Retained stool noted throughout the colon. Otherwise, no significant abnormality of the bowel is identified. No evidence of bowel obstruction. APPENDIX: Normal appendix is not seen, however, there are no significant inflammatory changes visualized in the expected location of the appendix to suggest appendicitis. Recommend clinical correlation. INTRAPERITONEAL SPACE: Small amount of abdominal free fluid. No evidence of free air. BONES/JOINTS: No acute fractures or other acute bony abnormality noted. SOFT TISSUES: Marked subcutaneous edema/anasarca. VASCULATURE: No evidence of abdominal aortic aneurysm or dissection. LYMPH NODES: Multiple small lymph nodes seen in the in the upper abdomen, in the periportal and pericaval regions, and also in the retroperitoneum, none appearing pathologically enlarged. This is a nonspecific finding. No evidence of diffuse pathologic lymphadenopathy. IMPRESSION: - Small amount of abdominal free fluid/ascites. - Marked, diffuse subcutaneous edema/anasarca. - Findings compatible with portal hypertension due to chronic liver disease. - Enlarged, heterogeneously enhancing liver, with no focal liver lesions seen. - Pneumobilia, of uncertain etiology, but may be postoperative. Recommend correlation with surgical history. - See above for remaining findings.
--- NOTE | 2017-05-13 22:15 | CP.PCM.PN ---
Subjective - Date & Time of Evaluation Date of Evaluation: 05/13/17 Time of Evaluation: 22:10 - Subjective Subjective: House Doctor note: The patient declines to stay in the hospital for continued treatment and wishes to leave the Emergency Department. This action is against my medical advice. This decision was made with informed refusal. The patient was told that treatment in the hospital is necessary. Explanation of the reasons why were discussed. The risks of leaving were explained to the patient and include, but are not limited to, worsening of known or currently unknown conditions, permanent disability and from undiagnosed or untreated conditions. The patient has the capacity to make this informed decision and understands my explanation of the current medical problem and risks of leaving. The patient voluntarily accepts these risks and signed an AMA form documenting our conversation. The patient was given the opportunity to ask questions and reconsider. The patient was encouraged to return to the Emergency Department at any time for further care. The admitting physician Dr. Yossi Carrion was notified. Objective - Vital Signs/Intake and Output Vital Signs (last 24 hours): Temp Pulse Resp BP Pulse Ox 98.1 F 79 20 114/71 97 05/13/17 15:15 05/13/17 15:15 05/13/17 15:15 05/13/17 15:15 05/13/17 15:15 Intake and Output: 05/13/17 05/14/17 18:59 06:59 Intake Total 360 Balance 360 - Medications Medications: Current Medications Albuterol/Ipratropium (Duoneb 3 Mg/0.5 Mg (3 Ml) Ud) 3 ml INH RQ6 PRN PRN Reason: Shortness of Breath Chlordiazepoxide (Librium) 25 mg PO Q8 PRN PRN Reason: Anxiety Last Admin: 05/13/17 05:40 Dose: 25 mg Chlordiazepoxide (Librium) 25 mg PO Q8H [facility]INE PRN Reason: Taper Stop: 05/16/17 11:59 Last Admin: 05/13/17 20:00 Dose: 25 mg Dextrose (Dextrose 50% Inj) 0 ml IV STAT PRN; Protocol PRN Reason: Hypoglycemia Protocol Dextrose (Glutose 15) 0 gm PO ONCE PRN; Protocol PRN Reason: Hypoglycemia Protocol Enoxaparin Sodium (Lovenox) 40 mg SC DAILY [facility] Folic Acid (Folic Acid) 1 mg PO DAILY [facility] Last Admin: 05/13/17 10:17 Dose: 1 mg Gabapentin (Neurontin) 100 mg PO TID [facility] Last Admin: 05/13/17 17:53 Dose: 100 mg Glucagon (Glucagen Diagnostic Kit) 0 mg IM STAT PRN; Protocol PRN Reason: Hypoglycemia Protocol Hydromorphone HCl (Dilaudid) 1 mg IVP Q8H PRN PRN Reason: Pain, severe (8-10) Last Admin: 05/12/17 02:20 Dose: 1 mg Dextrose (Dextrose 5% In Water 1000 Ml) 1,000 mls @ 0 mls/hr IV .Q0M PRN; Protocol; Per Protocol PRN Reason: Hypoglycemia Protocol Insulin Aspart (Novolog) 0 unit SC ACHS [facility] PRN Reason: Protocol Last Admin: 05/13/17 16:30 Dose: 2 unit Insulin Detemir (Levemir) 70 unit SC Q12 [facility] Last Admin: 05/13/17 10:18 Dose: Not Given Methadone HCl (Methadone) 30 mg PO Q24H [facility] PRN Reason: Taper Stop: 05/19/17 09:59 Multivitamins (Hexavitamin) 1 tab PO DAILY [facility] Last Admin: 05/13/17 10:17 Dose: 1 tab Nicotine (Nicoderm Cq) 1 patch TD DAILY [facility] Last Admin: 05/13/17 10:22 Dose: 1 patch Ondansetron HCl (Zofran Inj) 4 mg IVP Q6H PRN PRN Reason: Nausea/Vomiting Last Admin: 05/13/17 17:55 Dose: 4 mg Pantoprazole Sodium (Protonix Susp) 40 mg PO DAILY [facility] Last Admin: 05/13/17 10:17 Dose: 40 mg Thiamine HCl (Vitamin B1 Tab) 100 mg PO DAILY [facility] Last Admin: 05/13/17 10:17 Dose: 100 mg - Labs Labs: 05/13/17 07:00 05/13/17 07:00 PT 13.9 SECONDS (9.7-12.2) H 05/12/17 08:31 INR 1.2 05/12/17 08:31
--- NOTE | 2017-05-14 13:15 | CP.PCM.PCO ---
Physician Communication Note - Physician Communication Note Physician Communication Note: RN is made aware that the SW must call [facility] as the pt lives with 2 minors.
== END 2017-05-13 22:31 | disposition left against medical advice (07) | DRG 202 ==
LOC: C.ER 17:32 → C.9E 23:49 → C.3T 05-12 01:00
PROVIDERS: ADMIT Internal Medicine Nephrology; ATTEND Internal Medicine Nephrology
PROC: HZ2ZZZZ Detoxification Services for Substance Abuse Treatment (ICD-10-PCS; principal; 2017-05-11)
PROC: HZ52ZZZ Individual Psychotherapy for Substance Abuse Treatment, Cognitive-Behavioral (ICD-10-PCS; 2017-05-11)
PROC: HZ59ZZZ Individual Psychotherapy for Substance Abuse Treatment, Supportive (ICD-10-PCS; 2017-05-11)
PROC: HZ56ZZZ Individual Psychotherapy for Substance Abuse Treatment, Psychoeducation (ICD-10-PCS; 2017-05-11)
PROC: HZ42ZZZ Group Counseling for Substance Abuse Treatment, Cognitive-Behavioral (ICD-10-PCS; 2017-05-11)
PROC: HZ46ZZZ Group Counseling for Substance Abuse Treatment, Psychoeducation (ICD-10-PCS; 2017-05-11)
DX: K70.31 Alcoholic cirrhosis of liver with ascites (principal); K70.11 Alcoholic hepatitis with ascites; D69.6 Thrombocytopenia, unspecified; F10.239 Alcohol dependence with withdrawal, unspecified; F11.23 Opioid dependence with withdrawal; F10.229 Alcohol dependence with intoxication, unspecified; E11.9 Type 2 diabetes mellitus without complications; I10 Essential (primary) hypertension; Y90.6 Blood alcohol level of 120-199 mg/100 ml; J45.909 Unspecified asthma, uncomplicated; G40.909 Epilepsy, unspecified, not intractable, without status epilepticus; F17.210 Nicotine dependence, cigarettes, uncomplicated; Z90.49 Acquired absence of other specified parts of digestive tract; Z79.4 Long term (current) use of insulin